=== PATIENT | female | born 1970 | race Caucasian/White ===

== ENCOUNTER → 2016-05-13 | Outpatient (CLI) | payer BC ==
[~2016-05-13] MED LIST: IBUP-1050 PO; OXYC-57 PO; PRENTAB26 PO
== END | disposition home or self-care (01) ==
LOC: C.PATHSPEC 17:39
PROVIDERS: ATTEND Obstetrics & Gynecology
DX: N84.1 Polyp of cervix uteri (principal)

== ENCOUNTER → 2016-07-07 | Outpatient (CLI) | payer BC ==
[~2016-07-07] MED LIST changes: +GADAVIST IV PRN
--- NOTE | 2016-07-07 14:29 | DIAGNOSTIC IMAGING REPORT ---
MRI OF THE BRAIN WITHOUT AND WITH IV CONTRAST CLINICAL HISTORY: HEADACHES mental status change COMPARISON STUDY: No previous studies for comparison. TECHNIQUE: Utilizing a 1.5 Faiza magnet and dedicated coil, multiplanar, multiecho imaging of the brain was performed pre and postcontrast administration. IV administration of 7.3 mL of Gadavist contrast was uneventful. FINDINGS: Diffusion-weighted images show no evidence for an acute ischemic insult. Signal characteristics of both cerebral hemispheres are unremarkable. Ventricular system is midline. Postcontrast images are negative for an enhancing lesion. Sella and parasellar region are unremarkable. Internal auditory canals are symmetric IMPRESSION: Normal study. Electronically signed by: Franky Fabian M.D. 07/07/2016 2:28 PM Dictated Date/Time: 07/07/2016 2:24 PM
== END | disposition home or self-care (01) ==
LOC: C.MRIBC 13:18
PROVIDERS: ATTEND Psychiatry & Neurology Neurology
DX: R51 Headache (principal)

== ENCOUNTER → 2016-07-13 | Outpatient (CLI) | payer BC ==
[~2016-07-13] MED LIST changes: -GADAVIST IV PRN
== END | disposition home or self-care (01) ==
LOC: C.PATHSPEC 07:49
PROVIDERS: ATTEND Obstetrics & Gynecology
DX: N64.52 Nipple discharge (principal)

== ENCOUNTER → 2016-07-29 | Outpatient (CLI) | payer BC ==
--- NOTE | 2016-07-29 13:33 | MAMMOGRAPHY REPORT ---
BILATERAL DIGITAL DIAGNOSTIC MAMMOGRAM TOMOSYNTHESIS WITH CAD AND TARGETED BILATERAL ULTRASOUND: 07/07 CLINICAL HISTORY: The patient reports a history of bilateral nipple discharge for years, which is ty pically only noticed upon expression and is milkybrownish. For the past 2 months the patient has n oticed spontaneous bright red right nipple discharge. She denies any palpable lumps but notes a foc al area of intermittent pain in the right upper inner quadrant. TECHNIQUE: Breast tomosynthesis in addition to standard 2D mammography was performed. Current study was also evaluated with a Computer Aided Detection (CAD) system. Bilateral CC and MLO 2-D and jerson synthesis images and spot magnification bilateral cc and ML views were obtained. COMPARISON: Comparison is made to exams dated: 12/14/2015 mammogram, 12/05/2013 mammogram, 12/08/2014 ma mmogram, 12/04/2012 mammogram, 11/30/2011 mammogram, and 10/11/2010 mammogram - [facility]ter. BREAST COMPOSITION: The tissue of both breasts is heterogeneously dense, which may obscure small ma sses. FINDINGS: Spot magnification views were performed of bilateral subareolar regions, which show no rincon spicious masses or calcifications. The remainder of both breasts demonstrate no suspicious masses, calcifications, or areas of architectural distortion. 2 adjacent partially circumscribed and partia lly obscured oval masses are seen within the left upper outer quadrant on the tomosynthesis images, for which ultrasound is recommended. Scattered bilateral benign-appearing calcifications are not si gnificantly changed. Targeted ultrasound was performed of the area of intermittent pain pointed out by the patient in the right upper inner quadrant. Sonographically normal tissue is seen in this region, without evidence of a mass or other suspicious sonographic abnormality. Targeted ultrasound was performed of bilate ral subareolar regions to evaluate for an intraductal mass. No clear intraductal mass or other etio logy for the nipple discharge is evident. Multiple small round/oval anechoic masses were noted in b ilateral subareolar and periareolar regions, some of which contain thin internal septations, which a re consistent with benign cysts and cyst clusters. Targeted ultrasound of the left upper outer quad rant in the region of the mammographic mass which shows 2 adjacent anechoic benign simple cysts in t he left breast at 1:00, 3-4 cm from the nipple, the largest measuring 1.3 cm, which correlate with t he mammographic masses. IMPRESSION: ACR BI-RADS CATEGORY 2: BENIGN, TARGETED ULTRASOUND ACR BI-RADS CATEGORY 2: BENIGN No intraductal mass or other etiology for bilateral nipple discharge evident. No mammographic evide nce of malignancy in either breast. Given the presence of new spontaneous bloody right nipple disch arge, recommend further evaluation with breast MRI and/or surgical consultation. The patient has been verbally notified of the results. Approximately 10% of breast cancers are not detected with mammography. A negative mammographic repor t should not delay biopsy if a clinically suggestive mass is present. Catalina Weinberg M.D. ah/:07/29/2016 11:55:26 Tso: Christopher HWANG(Gely)(M), [facility] letter sent: Normal 1/2 BI-RADS Code: ACR BI-RADS Category 2: Benign Ultrasound BI-RADS: ACR BI-RADS Category 2: Benign
== END | disposition home or self-care (01) ==
LOC: C.MAMM 09:55
PROVIDERS: ATTEND Obstetrics & Gynecology
DX: N64.52 Nipple discharge (principal)

== ENCOUNTER → 2016-08-19 | Outpatient (CLI) | payer BC ==
--- NOTE | 2016-08-22 15:16 | MAMMOGRAPHY REPORT ---
BREAST MRI OF BOTH BREASTS : 08/19/2016 CLINICAL HISTORY: Spontaneous bloody right nipple discharge, with no etiology identified on recent d iagnostic mammograms and ultrasound. COMPARISON: Comparison is made to exams dated: 07/29/2016 mammogram, 07/29/2016 ultrasound, 12/14/2015 mammogram, 12/08/2014 mammogram, and 12/12/2013 mammogram - [facility]. Technique: The patient was placed prone in a dedicated breast imaging coil. Precontrast axial T1-we ighted, axial T2-weighted fat saturation, and axial T1-weighted fat saturation images were obtained. After the administration of 7.5 mL of Gadavist IV contrast, sequential T1-weighted fat saturation images were obtained. Subtraction images were obtained of the dynamic contrast enhanced sequences, and 3-D reformations were performed. The App[employer] software was used for kinetic analysis. Findings: There is marked background parenchymal enhancement involving bilateral breasts, which significantly reduces the sensitivity of the exam. Within the limitations of the exam, there are no suspicious en hancing masses or areas of abnormal non-mass enhancement within either breast. There are multiple c ircumscribed T2 hyperintense nonenhancing masses seen scattered throughout both breasts, consistent with benign cysts. There is T1 hyperintense material within the ducts in bilateral subareolar regio ns, without corresponding abnormal enhancement; the material is consistent with proteinaceous debris and/or blood. There is no evidence of axillary adenopathy. The chest wall structures are negative. Visualized ex tramammary soft tissues are grossly unremarkable. IMPRESSION: ACR BI-RADS CATEGORY 2: BENIGN Marked background parenchymal enhancement which reduces the sensitivity of the exam. Within the frances itations of the exam, there is no MRI evidence of malignancy. No clear etiology for bloody right ni pple discharge evident. If the bloody nipple discharge persists, consider surgical consultation for further evaluation. Return to annual mammogram screening schedule is also recommended. Catalina Weinberg M.D. 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
== END | disposition home or self-care (01) ==
LOC: C.MRI 10:52
PROVIDERS: ATTEND Obstetrics & Gynecology
DX: R93.8 Abnormal findings on diagnostic imaging of other specified body structures (principal); N64.52 Nipple discharge

== ENCOUNTER → 2016-11-03 | Outpatient (CLI) | payer BC | END | disposition home or self-care (01) | LOC: C.PATHSPEC 17:54 | PROVIDERS: ATTEND Obstetrics & Gynecology | DX: N84.1 Polyp of cervix uteri (principal); N30.20 Other chronic cystitis without hematuria ==

== ENCOUNTER 2017-05-02 20:26 | Emergency (ER) | payer BC ==
[~2017-05-02] VITALS: Ht 157.5 cm; Wt 78.2 kg
[2017-05-02 20:29] VITALS: TEMP 36.7; Ht 157.5 cm; Wt 78.2 kg
[2017-05-02] MEDS ORDERED: KETOROLAC TROMETHAMINE 30 MG/ML VIAL IV STA (20:53)
[2017-05-02] MEDS ORDERED: FENTANYL CITRATE INJ 50 MCG/1 ML 2 ML VIAL IV STA (20:53)
[2017-05-02] MEDS ORDERED: SODIUM CHLORIDE 0.9% 1000ML 1,000 ML IV STA (20:53)
[2017-05-02] MEDS ORDERED: ONDANSETRON INJ 2 MG/ML 2 ML VIAL IV STA (20:53)
[2017-05-02 21:21] LABS: BASO % 0.4 %; BASO ABS # 0.03 K/uL (0-0.2); COMPLETE YES; EOS % 2.8 %; HEMATOCRIT 39.9 % (37-47); IG% 0.1 %; LYMPH % 32.7 %; LYMPH ABS # 2.59 K/uL (1.2-3.4); MEAN CELL VOLUME 88.3 fL (80-100); MEAN CORPUSCULAR HEMOGLOBIN 30.5 pg (25-34); MEAN CORPUSCULAR HGB CONC 34.6 g/dl (32-36); MEAN PLATELET VOLUME 10.5 fL (7.4-10.4); MONO % 13.6 %; NEUT % 50.4 %; PLATELET COUNT 248 K/uL (130-400); RED BLOOD COUNT 4.52 M/uL (4.2-5.4); WHITE BLOOD COUNT 7.92 K/uL (4.8-10.8)
[2017-05-02 21:35] LABS: URINE APPEARANCE CLEAR (CLEAR); URINE BILIRUBIN NEG (NEG); URINE COLOR YELLOW; URINE NITRITE NEG (NEG); URINE PH 6.5 (4.5-7.5); URINE SPECIFIC GRAVITY 1.008 (1.000-1.030); UROBILINOGEN NEG (NEG)
[2017-05-02 21:39] LABS: MANUAL MICROSCOPIC REQUIRED? YES; REVIEW REQ? NO
[2017-05-02 21:49] LABS: URINE BACTERIA 1+ (NEG); URINE RBC 0-4 /hpf (0-4); ZZUR CULT IF INDIC CLEAN CATCH YES
--- NOTE | 2017-05-02 21:49 | DIAGNOSTIC IMAGING REPORT ---
CT OF THE ABDOMEN AND PELVIS WITHOUT CONTRAST, STONE PROTOCOL CLINICAL HISTORY: Flank pain. COMPARISON STUDY: None. TECHNIQUE: Helical axial images of the abdomen and pelvis were obtained without IV or oral contrast according to renal stone protocol. A dose lowering technique was utilized adhering to the principles of ALARA. FINDINGS: No renal, ureteral or bladder calculi are present. There is no hydronephrosis or hydroureter. A subcentimeter hypodense right hepatic lobe lesion likely reflects a cyst. Evaluation of the abdomen and pelvis is suboptimal on this unenhanced examination. The spleen, adrenal glands and pancreas are unremarkable. There is no biliary or pancreatic ductal dilatation. There is no evidence for a bowel obstruction. The appendix is not visualized. There is no lymphadenopathy. No ascites is present. Pelvic calcifications reflect phleboliths. IMPRESSION: 1. No urinary calculi or hydronephrosis. 2. No acute process within the abdomen or pelvis on unenhanced exam. Electronically signed by: Carlitos Ashton M.D. 05/02/2017 9:47 PM Dictated Date/Time: 05/02/2017 9:40 PM
[2017-05-02] MEDS ORDERED: VERA180C3 PO (21:56)
[2017-05-02] MEDS ORDERED: RIZA10TA18 PO (21:56)
--- NOTE | 2017-05-02 21:58 | EMERGENCY ROOM VISIT NOTE ---
History Report prepared by Mee: Lance Gaytan Under the Supervision of: Dr. Dexter Cameron D.O. First contact with patient: 20:32 Chief Complaint: KIDNEY STONE Stated Complaint: KIDNEY STONE History of Present Illness The patient is a 46 year old female who presents to the Emergency Room with complaints of worsening, intermittent, cramping to her right lower back beginning two days ago. The patient states she went to a medical center today and had a urine analysis that showed blood. She reports she has a history of a kidney stone, and her symptoms are very similar. The patient notes movement helps with alleviate her symptoms. She states her last normal menstrual period was three weeks ago. The patient denies any other complaint. Source of History: patient Onset: two days ago Position: back (right, lower) Quality: cramping Timing: intermittent, worsening Modifying Factors (Relieving): movement Note: The patient denies other symptoms. Review of Systems See HPI for pertinent positives & negatives. A total of 10 systems reviewed and were otherwise negative. Past Medical & Surgical Medical Problems: (1) Kidney stone Family History Patient reports no known family medical history. Social History Smoking Status: Never Smoker Marital Status: Housing Status: lives with significant other Occupation Status: employed Current/Historical Medications Scheduled Rizatriptan Benzoate (Maxalt), 10 MG PO UD Verapamil Hcl (Verapamil Hcl Sr), 180 MG PO DAILY Allergies Coded Allergies: Cefdinir (Verified Allergy, Intermediate, Nausea, 05/02/17) Sodium Benzoate (Verified Allergy, Intermediate, Nausea, 05/02/17) Sulfa Drugs (Verified Allergy, Unknown, REDNESS,SWELLING,ITCHY, 06/12/09) Physical Exam Vital Signs Date Time Temp Pulse Resp B/P (MAP) Pulse Ox O2 Delivery O2 Flow Rate FiO2 05/02/17 22:11 70 18 142/93 99 Room Air 05/02/17 20:29 36.7 72 18 171/93 100 Room Air Physical Exam CONSTITUTIONAL/VITAL SIGNS: Reviewed / noted above. GENERAL: Non-toxic in appearance. INTEGUMENTARY: Warm, dry, and [place]. HEAD: Normocephalic. EYES: without scleral icterus or trauma. ENT/OROPHARYNX: clear and moist. LYMPHADENOPATHY/NECK: Is supple without lymphadenopathy or meningismus. RESPIRATORY: Lungs clear and equal. CARDIOVASCULAR: Regular rate and rhythm. GI/ABDOMEN: Soft and nontender. No organomegaly or pulsatile mass. No rebound or guarding. Normal bowel sounds. EXTREMITIES: Warm and well perfused. BACK: No CVA tenderness. NEUROLOGICAL: Intact without focal deficits. PSYCHIATRIC: normal affect. MUSCULOSKELETAL: Normally developed with good muscle tone. Medical Decision & Procedures ER Provider Diagnostic Interpretation: Radiology results as stated below per my review and radiologist interpretation: CT OF THE ABDOMEN AND PELVIS WITHOUT CONTRAST, STONE PROTOCOL CLINICAL HISTORY: Flank pain. COMPARISON STUDY: None. TECHNIQUE: Helical axial images of the abdomen and pelvis were obtained without IV or oral contrast according to renal stone protocol. A dose lowering technique was utilized adhering to the principles of ALARA. FINDINGS: No renal, ureteral or bladder calculi are present. There is no hydronephrosis or hydroureter. A subcentimeter hypodense right hepatic lobe lesion likely reflects a cyst. Evaluation of the abdomen and pelvis is suboptimal on this unenhanced examination. The spleen, adrenal glands and pancreas are unremarkable. There is no biliary or pancreatic ductal dilatation. There is no evidence for a bowel obstruction. The appendix is not visualized. There is no lymphadenopathy. No ascites is present. Pelvic calcifications reflect phleboliths. IMPRESSION: 1. No urinary calculi or hydronephrosis. 2. No acute process within the abdomen or pelvis on unenhanced exam. Electronically signed by: Carlitos Ashton M.D. 05/02/2017 9:47 PM Dictated Date/Time: 05/02/2017 9:40 PM Laboratory Results 05/02/17 21:00 Red Blood Count 4.52, Mean Corpuscular Volume 88.3, Mean Corpuscular Hemoglobin 30.5, Mean Corpuscular Hemoglobin Concent 34.6, Mean Platelet Volume 10.5, Neutrophils (%) (Auto) 50.4, Lymphocytes (%) (Auto) 32.7, Monocytes (%) (Auto) 13.6, Eosinophils (%) (Auto) 2.8, Basophils (%) (Auto) 0.4, Neutrophils # (Auto ) 3.99, Lymphocytes # (Auto) 2.59, Monocytes # (Auto) 1.08, Eosinophils # (Auto ) 0.22, Basophils # (Auto) 0.03 05/02/17 21:00 Test 05/02/17 21:00 White Blood Count 7.92 K/uL (4.8-10.8) Red Blood Count 4.52 M/uL (4.2-5.4) Hemoglobin 13.8 g/dL (12.0-16.0) Hematocrit 39.9 % (37-47) Mean Corpuscular Volume 88.3 fL (80-100) Mean Corpuscular Hemoglobin 30.5 pg (25-34) Mean Corpuscular Hemoglobin Concent 34.6 g/dl (32-36) Platelet Count 248 K/uL (130-400) Mean Platelet Volume 10.5 fL (7.4-10.4) Neutrophils (%) (Auto) 50.4 % Lymphocytes (%) (Auto) 32.7 % Monocytes (%) (Auto) 13.6 % Eosinophils (%) (Auto) 2.8 % Basophils (%) (Auto) 0.4 % Neutrophils # (Auto) 3.99 K/uL (1.4-6.5) Lymphocytes # (Auto) 2.59 K/uL (1.2-3.4) Monocytes # (Auto) 1.08 K/uL (0.11-0.59) Eosinophils # (Auto) 0.22 K/uL (0-0.5) Basophils # (Auto) 0.03 K/uL (0-0.2) RDW Standard Deviation 41.6 fL (36.4-46.3) RDW Coefficient of Variation 13.0 % (11.5-14.5) Immature Granulocyte % (Auto) 0.1 % Immature Granulocyte # (Auto) 0.01 K/uL (0.00-0.02) Urine Color YELLOW Urine Appearance CLEAR (CLEAR) Urine pH 6.5 (4.5-7.5) Urine Specific [place] 1.008 (1.000-1.030) Urine Protein NEG (NEG) Urine Glucose (UA) NEG (NEG) Urine Ketones NEG (NEG) Urine Occult Blood NEG (NEG) Urine Nitrite NEG (NEG) Urine Bilirubin NEG (NEG) Urine Urobilinogen NEG (NEG) Urine Leukocyte Esterase NEG (NEG) Urine WBC (Auto) /hpf (0-5) Urine RBC (Auto) /hpf (0-4) Urine Hyaline Casts (Auto) /lpf (0-5) Urine Epithelial Cells (Auto) /lpf (0-5) Urine Bacteria (Auto) (NEG) Urine RBC 0-4 /hpf (0-4) Urine WBC 1-5 /hpf (0-5) Urine Epithelial Cells 10-20 /lpf (0-5) Urine Bacteria 1+ (NEG) Urine Test NEG (NEG) Anion Gap 6.0 mmol/L (3-11) Est Creatinine Clear Calc Drug Dose 89.6 ml/min Estimated GFR () 109.0 Estimated GFR (Non- 94.1 BUN/Creatinine Ratio 13.2 (10-20) Calcium Level 8.7 mg/dl (8.5-10.1) Total Bilirubin 0.3 mg/dl (0.2-1) Direct Bilirubin < 0.1 mg/dl (0-0.2) Aspartate Amino Transf (AST/SGOT) 33 U/L (15-37) Alanine Aminotransferase (ALT/SGPT) 23 U/L (12-78) Alkaline Phosphatase 59 U/L (45-117) Total Protein 7.9 gm/dl (6.4-8.2) Albumin 4.2 gm/dl (3.4-5.0) Lipase 371 U/L (73-393) Laboratory results as stated above per my review. Medications Administered Medications (Trade) Dose Ordered Sig/Molly Route Start Time Stop Time Status Last Admin Dose Admin Sodium Chloride 1,000 ml @ 999 mls/hr Q1H1M STAT IV 05/02/17 20:53 05/02/17 21:53 DC 05/02/17 21:07 999 MLS/HR Fentanyl Citrate (Fentanyl Inj) 100 mcg NOW STAT IV 05/02/17 20:53 05/02/17 20:54 DC 05/02/17 21:07 100 MCG Ondansetron HCl (Zofran Inj) 4 mg NOW STAT IV 05/02/17 20:53 05/02/17 20:54 DC 05/02/17 21:06 4 MG Ketorolac Tromethamine (Toradol Inj) 30 mg NOW STAT IV 05/02/17 20:53 05/02/17 20:54 DC 05/02/17 21:07 30 MG ED Course 2049: Previous medical records were reviewed. The patient was evaluated in room B12A. A complete history and physical examination was performed. 2052: Ordered Toradol Inj 30mg IV, Zofran Inj 4mg IV, Fentanyl Inj 100mcg IV, Sodium Chloride 1000 ml @ 999 mls/hr IV 2216: On reevaluation, the patient is resting comfortably. I discussed the results and findings with the patient. She verbalized agreement of the treatment plan. The patient was discharged home. Medical Decision Differential considered: pancreatitis, hepatitis, or acute cholecystitis, AAA, UTI, pyelonephritis, kidney stones, appendicitis, diverticulitis, shingles, bowel obstruction mesenteric ischemia, intussusception, hernia, ovarian torsion , ruptured ovarian cyst, ectopic , . This is a 46-year-old female who presents to the ED with a chief complaint of a kidney stone. The patient states that she has had some right-sided flank pain for the past couple of days. It was initially intermittent in nature and then became more continuous. She reports that she was seen at [facility] and found to have blood in the urine. She was given medication which hasn't helped. The patient has initial hypertension on exam. There is no abdominal tenderness or CVA tenderness on exam. Her CBC is normal, urine did not show infection or blood. test was negative. CT scan of the abdomen and pelvis did not show acute process. PRP was unremarkable. The patient was told results. She was treated with IV Toradol and IV fentanyl as well as IV Zofran and fluids. She is felt to be stable for discharge and outpatient follow-up. Medication Reconcilliation Current Medication List: was personally reviewed by me Blood Pressure Screening Patient's blood pressure: Elevated blood pressure Blood pressure disposition: Elevated BP felt to be situational Impression Primary Impression: Right flank pain Scribe Attestation The scribe's documentation has been prepared under my direction and personally reviewed by me in its entirety. I confirm that the note above accurately reflects all work, treatment, procedures, and medical decision making performed by me. Departure Information Dispostion Home / Self-Care Referrals Keven Aguila M.D. (PCP) Forms HOME CARE DOCUMENTATION FORM, IMPORTANT VISIT INFORMATION Patient Instructions My [facility] Additional Instructions Follow-up with your doctor for further care and evaluation in 3-6 days if symptoms persist. Return to the emergency department for worsening or new symptoms or any concerns. You have been examined and treated today on an emergency basis only. This is not a substitute for, or an effort to provide, complete comprehensive medical care. It is impossible to recognize and treat all injuries or illnesses in a single emergency department visit. It is therefore important that you follow up closely with your doctor. Call as soon as possible for an appointment.
[2017-05-02 22:11] VITALS: BP 142/93; PULSE 70; O2SAT 99
[2017-05-02 22:12] LABS: ALKALINE PHOSPHATASE 59 U/L (45-117); ALT/SGPT 23 U/L (12-78); AST/SGOT 33 U/L (15-37); BLOOD UREA NITROGEN 10 mg/dl (7-18); BUN/CREATININE RATIO 13.2 (10-20); CALCIUM 8.7 mg/dl (8.5-10.1); CARBON DIOXIDE 25 mmol/L (21-32); CHLORIDE 107 mmol/L (98-107); CREATININE 0.76 mg/dl (0.60-1.20); GLUCOSE 88 mg/dl (70-99); POTASSIUM 4.4 mmol/L (3.5-5.1); SODIUM 138 mmol/L (136-145)
[2017-05-02] MEDS ORDERED: MoRPHine SULFATE 4 MG/ML 1 ML CARP\\VIAL IV STA (22:18)
[2017-05-03] MEDS ORDERED: KETO10TA PO (18:13)
[2017-05-03] MEDS ORDERED: HYDR-5688 PO (18:13)
[2017-05-03] MEDS ORDERED: PRED10TA PO (23:03)
== END 2017-05-02 22:26 | disposition home or self-care (01) ==
LOC: C.EDB 20:26
DX: R10.9 Unspecified abdominal pain (principal); Z87.442 Personal history of urinary calculi; Z79.899 Other long term (current) drug therapy

== ENCOUNTER 2017-05-03 17:43 | Emergency (ER) | payer BC ==
[~2017-05-03] VITALS: Ht 157.5 cm; Wt 77.3 kg
[~2017-05-03 17:43] MED LIST changes: -IBUP-1050 PO; -OXYC-57 PO; -PRENTAB26 PO; +RIZA10TA18 PO; +VERA180C3 PO
[2017-05-03 17:46] VITALS: TEMP 36.8; Ht 157.5 cm; Wt 77.3 kg
--- NOTE | 2017-05-03 17:59 | EMERGENCY ROOM VISIT NOTE ---
History Report prepared by Mee: Suzanne Wagner Under the Supervision of: Dr. Sandi Vásquez M.D. First contact with patient: 17:56 Chief Complaint: KIDNEY STONE Stated Complaint: KIDNEY STONE History of Present Illness The patient is a 46 year old female who presents to the Emergency Room with complaints of worsening flank pain occurring today. She states that she went to [facility] yesterday morning and her urine had blood in it, and was told she probably had a kidney stone. The patient states that she came to the ED last night because the pain was severe, so she had a work up done, which showed normal results. She states that when she got home her pain worsened , and she called her doctor and was prescribed hydrocodone. She states that the hydrocodone did not help her pain. She reports a history of an appendectomy but denies a history of a cholecystectomy. The patient states that she had the chills today, but denies shortness of breath. She denies being on control medications. She also denies a family history of blood clots. Her also states that the patient has chronic migraines. Source of History: patient Onset: today Position: other (flank) Timing: worsening Associated Symptoms: + chills, No SOB Review of Systems See HPI for pertinent positives & negatives. A total of 10 systems reviewed and were otherwise negative. Past Medical & Surgical Medical Problems: (1) Kidney stone Surgical Problems: (1) History of appendectomy Family History Patient reports no known family medical history. Social History Smoking Status: Never Smoker Marital Status: Housing Status: lives with significant other Occupation Status: employed Current/Historical Medications Scheduled Prednisone (Prednisone), 10 MG PO DIRECTED Rizatriptan Benzoate (Maxalt), 10 MG PO UD Verapamil Hcl (Verapamil Hcl Sr), 180 MG PO DAILY Scheduled PRN Hydrocodone/Acetaminophen 5MG/325MG (Mohawk 5MG/325MG), 1 TAB PO TID PRN for Pain Ketorolac (Toradol), 10 MG PO for Pain Allergies Coded Allergies: Cefdinir (Verified Allergy, Intermediate, Nausea, 05/03/17) Sodium Benzoate (Verified Allergy, Intermediate, Nausea, 05/03/17) Sulfa Drugs (Verified Allergy, Unknown, REDNESS,SWELLING,ITCHY, 05/03/17) Physical Exam Vital Signs Date Time Temp Pulse Resp B/P (MAP) Pulse Ox O2 Delivery O2 Flow Rate FiO2 05/03/17 23:05 78 20 133/86 98 05/03/17 21:28 83 20 132/87 97 Room Air 05/03/17 20:46 71 05/03/17 19:52 69 20 125/58 96 Room Air 05/03/17 17:46 36.8 86 18 151/100 100 Room Air Physical Exam Vital signs reviewed. General: Well-appearing female, in no significant distress. HEENT: No scleral icterus, PERRLA, neck supple. Atraumatic. Cardiovascular: Regular rate and rhythm, no extra sounds. Pulmonary: Clear to auscultation bilaterally, normal work of breathing. Abdomen: Soft, nontender, obese, no significant right upper quadrant tenderness , nondistended, positive bowel sounds. Musculoskeletal: Atraumatic, no peripheral edema. No CVA tenderness. Neurologic: Patient awake alert and oriented x 3. Skin: Warm, dry, no rash Medical Decision & Procedures ER Provider Diagnostic Interpretation: Radiology results as stated below per my review and radiologist interpretation: SINGLE VIEW CHEST CLINICAL HISTORY: Cough. Right flank pain. FINDINGS: An AP, portable, upright chest radiograph is obtained. No prior studies are available for comparison at the time of dictation. The examination is degraded by portable technique and patient rotation. The cardiomediastinal silhouette is unremarkable. The lungs and pleural spaces are clear. No pneumothorax is seen. The bony thorax is grossly intact. IMPRESSION: No active disease in the chest. Electronically signed by: Napoleon Turner M.D. 05/03/2017 7:00 PM Dictated Date/Time: 05/03/2017 6:59 PM ULTRASOUND RIGHT UPPER QUADRANT ABDOMEN CLINICAL HISTORY: Right flank pain. COMPARISON STUDY: Abdominal CT dated 05/02/2017. TECHNIQUE: Real-time, grayscale, and color flow sonography of the right upper quadrant of the abdomen was performed. Images are reviewed in the transverse and longitudinal planes. FINDINGS: Liver: The liver is normal in size and echotexture. There is no intrahepatic biliary ductal dilatation. The main portal vein is patent. Gallbladder: The gallbladder is normal in appearance. No gallstones are identified. There is no gallbladder wall thickening or pericholecystic fluid. A sonographic Atkinson's sign is reportedly absent. The common bile duct measures up to 0.4 cm in diameter. Pancreas: Visualized portions of the pancreatic head and body are normal in appearance. Right kidney: Survey images of the right kidney demonstrate normal size and echotexture. There is no hydronephrosis. Ascites: None. IMPRESSION: Unremarkable sonographic assessment of the right upper quadrant. No gallstones are identified. Electronically signed by: Napoleon Turner M.D. 05/03/2017 7:45 PM Dictated Date/Time: 05/03/2017 7:[address] ANGIOGRAM OF THE CHEST CLINICAL HISTORY: Atypical chest pain. COMPARISON STUDY: Chest x-ray dated 05/03/2017. TECHNIQUE: Following the IV administration of 70 cc of Optiray 320, CT angiogram of the chest was performed from the upper abdomen to the thoracic inlet utilizing the pulmonary embolus protocol. Images are reviewed in the axial, sagittal, and coronal planes. 3-D MIPS images are created and assessed. IV contrast was administered without complication. A dose lowering technique was utilized adhering to the principles of ALARA. CT DOSE: 304.62 mGy.cm FINDINGS: Thyroid: Imaged portions of the thyroid gland are normal in size and attenuation. A 1.2 cm low-attenuation nodule is seen in the left lobe. Thoracic aorta: The thoracic aorta is normal in caliber and demonstrates standard 3-vessel arch anatomy. No dissection is seen. Pulmonary vasculature: The pulmonary trunk is normal in caliber. There are no filling defects identified in main, lobar, or segmental pulmonary branches to suggest pulmonary embolus. Heart: The heart is normal in size and configuration, and without pericardial effusion. There is age advanced atherosclerotic calcification of the left coronary artery. Lungs and pleural spaces: The lungs and pleural spaces are clear noting dependent atelectasis. The trachea and central airways are patent. Mediastinum: There is no mediastinal lymphadenopathy. Lucia: Clear. Axillae: There is no axillary lymphadenopathy. Upper abdomen: There is a small hiatal hernia. Partially visualized upper abdominal viscera is otherwise within normal limits. Skeletal structures: No lytic or blastic bony lesions are seen. IMPRESSION: 1. There is no evidence of pulmonary embolus in the main, lobar, or segmental pulmonary arteries. 2. The lungs are clear. 3. There is a 1.2 cm low-attenuation nodule in the left thyroid lobe. Follow-up with a nonemergent thyroid ultrasound is recommended for further assessment. 4. There is mild but age advanced atherosclerotic calcification of the left coronary artery. Electronically signed by: Napoleon Turner M.D. 05/03/2017 9:43 PM Dictated Date/Time: 05/03/2017 9:39 PM Laboratory Results 05/03/17 18:30 Red Blood Count 4.49, Mean Corpuscular Volume 86.9, Mean Corpuscular Hemoglobin 30.1, Mean Corpuscular Hemoglobin Concent 34.6, Mean Platelet Volume 10.5, Neutrophils (%) (Auto) 75.8, Lymphocytes (%) (Auto) 14.9, Monocytes (%) (Auto) 7.8, Eosinophils (%) (Auto) 1.0, Basophils (%) (Auto) 0.2, Neutrophils # (Auto) 7.31, Lymphocytes # (Auto) 1.44, Monocytes # (Auto) 0.75, Eosinophils # (Auto) 0.10, Basophils # (Auto) 0.02 05/03/17 18:30 Test 05/03/17 18:17 05/03/17 18:30 05/03/17 18:40 Urine Color YELLOW Urine Appearance CLEAR (CLEAR) Urine pH 5.0 (4.5-7.5) Urine Specific [place] 1.012 (1.000-1.030) Urine Protein NEG (NEG) Urine Glucose (UA) NEG (NEG) Urine Ketones NEG (NEG) Urine Occult Blood TRACE (NEG) Urine Nitrite NEG (NEG) Urine Bilirubin NEG (NEG) Urine Urobilinogen NEG (NEG) Urine Leukocyte Esterase NEG (NEG) Urine WBC (Auto) 0 /hpf (0-5) Urine RBC (Auto) 0-4 /hpf (0-4) Urine Hyaline Casts (Auto) 0 /lpf (0-5) Urine Epithelial Cells (Auto) 5-10 /lpf (0-5) Urine Bacteria (Auto) NEG (NEG) White Blood Count 9.65 K/uL (4.8-10.8) Red Blood Count 4.49 M/uL (4.2-5.4) Hemoglobin 13.5 g/dL (12.0-16.0) Hematocrit 39.0 % (37-47) Mean Corpuscular Volume 86.9 fL (80-100) Mean Corpuscular Hemoglobin 30.1 pg (25-34) Mean Corpuscular Hemoglobin Concent 34.6 g/dl (32-36) Platelet Count 239 K/uL (130-400) Mean Platelet Volume 10.5 fL (7.4-10.4) Neutrophils (%) (Auto) 75.8 % Lymphocytes (%) (Auto) 14.9 % Monocytes (%) (Auto) 7.8 % Eosinophils (%) (Auto) 1.0 % Basophils (%) (Auto) 0.2 % Neutrophils # (Auto) 7.31 K/uL (1.4-6.5) Lymphocytes # (Auto) 1.44 K/uL (1.2-3.4) Monocytes # (Auto) 0.75 K/uL (0.11-0.59) Eosinophils # (Auto) 0.10 K/uL (0-0.5) Basophils # (Auto) 0.02 K/uL (0-0.2) RDW Standard Deviation 41.1 fL (36.4-46.3) RDW Coefficient of Variation 12.7 % (11.5-14.5) Immature Granulocyte % (Auto) 0.3 % Immature Granulocyte # (Auto) 0.03 K/uL (0.00-0.02) D-Dimer 520 ug/L FEU (0-500) Anion Gap 6.0 mmol/L (3-11) Est Creatinine Clear Calc Drug Dose 94.0 ml/min Estimated GFR () 116.4 Estimated GFR (Non- 100.4 BUN/Creatinine Ratio 8.4 (10-20) Calcium Level 9.2 mg/dl (8.5-10.1) Total Bilirubin 0.5 mg/dl (0.2-1) Direct Bilirubin 0.1 mg/dl (0-0.2) Aspartate Amino Transf (AST/SGOT) 14 U/L (15-37) Alanine Aminotransferase (ALT/SGPT) 22 U/L (12-78) Alkaline Phosphatase 46 U/L (45-117) Total Protein 7.0 gm/dl (6.4-8.2) Albumin 4.1 gm/dl (3.4-5.0) Bedside Troponin I < 0.030 ng/ml (0-0.045) Laboratory results per my review. Medications Administered Medications (Trade) Dose Ordered Sig/Molly Route Start Time Stop Time Status Last Admin Dose Admin Sodium Chloride 500 ml @ 999 mls/hr Q31M STAT IV 05/03/17 18:03 05/03/17 18:33 DC 05/03/17 18:35 999 MLS/HR Ketorolac Tromethamine (Toradol Inj) 30 mg NOW STAT IV 05/03/17 18:03 05/03/17 18:09 DC 05/03/17 18:36 30 MG Hydromorphone HCl (Dilaudid Inj) 1 mg NOW STAT IV 05/03/17 18:03 05/03/17 18:09 DC 05/03/17 18:37 1 MG Prochlorperazine Edisylate (Compazine Inj) 10 mg NOW STAT IV 05/03/17 18:03 05/03/17 18:10 DC 05/03/17 18:36 10 MG Diphenhydramine HCl (Benadryl Inj) 25 mg NOW STAT IV 05/03/17 18:03 05/03/17 18:10 DC 05/03/17 18:36 25 MG Methylprednisolone Sodium Succinate (Solu-Medrol IV) 125 mg NOW STAT IV 05/03/17 22:27 05/03/17 22:28 DC 05/03/17 22:42 125 MG Hydromorphone HCl (Dilaudid Inj) 0.5 mg NOW STAT IV 05/03/17 22:27 05/03/17 22:28 DC 05/03/17 22:43 0.5 MG Acetaminophen/ Hydrocodone Bitart (Mohawk 5/325mg Home Pack) 1 homepack UD ONCE PO 05/03/17 22:30 05/03/17 22:31 DC 05/03/17 22:43 1 HOMEPACK ECG Indication: other (flank pain) Rate (beats per minute): 74 Rhythm: normal sinus Findings: no acute ischemic change, no ectopy ED Course 1800: Past medical records reviewed. The patient was evaluated in room C5. A complete history and physical examination was performed. 1802: Ordered Benadryl Inj 25 mg IV, Compazine Inj 10 mg IV, Dilaudid Inj 1 mg IV, Toradol Inj 30 mg IV, Sodium Chloride 500 ml @ 999 mls/hr IV. 2114: I checked on the patient and updated her on her results. 2226: Ordered Dilaudid Inj 0.5 mg IV, Methylprednisolone Sodium Succinate 125 mg IV. 2229: Ordered Hydrocodone Bitart/Acetaminophen 1 homepack PO. 3: Upon reevaluation, the patient appeared to have improvement of her symptoms. I discussed findings with her. She verbalized agreement of the treatment plan. She was discharged home. Medical Decision Differential diagnosis: Etiologies such as renal colic, appendicitis, diverticulitis, mesenteric ischemia, aortic pathology, infections, inflammatory bowel disease, PUD, biliary pathology, UTI, cholecystitis, as well as others were entertained. This patient was evaluated and appeared to be in no significant distress. IV access was obtained and laboratory work was drawn. Patient was hydrated with normal saline solution IV Toradol, IV Dilaudid and IV Compazine. CT scan of the abdomen and pelvis was performed and reveals no evidence of renal calculus. Urinalysis is contaminated but largely negative for infection. This will be sent for culture. Patient is also found have a thyroid nodule on CT which was discussed with her. I suspect the patient is suffering a musculoskeletal pain, could be a radiculopathy. She was advised to follow-up with her physician for reevaluation. She was given Flexeril earlier in the day. The patient requested additional pain medicine she was given IV Dilaudid 0.5 mg. Patient was given conservative instructions regarding her back discomfort. She will follow-up with her primary care physician this week for reevaluation and return to the ER for worsening of symptoms or any medical concerns. [place] Drug Monitoring Program Search Results: patient reviewed within database, no issues identified Medication Reconcilliation Current Medication List: was personally reviewed by me Blood Pressure Screening Patient's blood pressure: Elevated blood pressure Blood pressure disposition: Elevated BP felt to be situational Impression Primary Impression: Right flank pain Additional Impressions: Radiculopathy Thyroid nodule Scribe Attestation The scribe's documentation has been prepared under my direction and personally reviewed by me in its entirety. I confirm that the note above accurately reflects all work, treatment, procedures, and medical decision making performed by me. Departure Information Dispostion Home / Self-Care Prescriptions Prednisone (Prednisone) 10 Mg Tab 10 MG PO DIRECTED, #31 TAB 40 mg daily for 4 days, 30 mg for 3 days, 20 mg for 2 days, 10 mg for 2 days. Prov: Sandi Vásquez M.D. 05/03/17 Referrals Suzy Grady M.D. (PCP) Forms HOME CARE DOCUMENTATION FORM, IMPORTANT VISIT INFORMATION Patient Instructions My [facility] Additional Instructions Diagnosis: Right thyroid nodule, right flank pain, radiculopathy Prednisone 40 mg daily for 4 more days, 30 mg daily for 3 days, 20 mg daily for 2 days, 10 mg daily for 2 days. Hydrocodone/APAP 5 mg tablet, one to 2 tabs every 6 hours as needed for significant pain. Do not take Tylenol with this medication. Avoid Aleve, ibuprofen and aspirin while taking the prednisone. Follow-up with your physician on Monday as scheduled. Return to the emergency department for worsening of symptoms or any medical concerns. Problem Qualifiers
[2017-05-03] MEDS ORDERED: PROCHLORPERAZINE 5 MG/ML 2 ML VIAL IV STA (18:03)
[2017-05-03] MEDS ORDERED: KETOROLAC TROMETHAMINE 30 MG/ML VIAL IV STA (18:03)
[2017-05-03] MEDS ORDERED: DiphenhydrAMINE HCL 50 MG/ML VIAL IV STA (18:03)
[2017-05-03] MEDS ORDERED: SODIUM CHLORIDE 0.9% 500ML 500 ML IV STA (18:03)
[2017-05-03] MEDS ORDERED: HYDROmorphone INJ 1 MG/ML SYR IV STA (18:03)
[2017-05-03] MEDS ORDERED: KETO10TA PO (18:13)
[2017-05-03] MEDS ORDERED: HYDR-5688 PO (18:13)
[2017-05-03 18:55] LABS: BASO % 0.2 %; BASO ABS # 0.02 K/uL (0-0.2); COMPLETE YES; IG% 0.3 %; LYMPH % 14.9 %; LYMPH ABS # 1.44 K/uL (1.2-3.4); MEAN CELL VOLUME 86.9 fL (80-100); MEAN CORPUSCULAR HEMOGLOBIN 30.1 pg (25-34); MEAN CORPUSCULAR HGB CONC 34.6 g/dl (32-36); MEAN PLATELET VOLUME 10.5 fL (7.4-10.4); MONO % 7.8 %; NEUT % 75.8 %; PLATELET COUNT 239 K/uL (130-400); RED BLOOD COUNT 4.49 M/uL (4.2-5.4); WHITE BLOOD COUNT 9.65 K/uL (4.8-10.8)
--- NOTE | 2017-05-03 19:01 | DIAGNOSTIC IMAGING REPORT ---
SINGLE VIEW CHEST CLINICAL HISTORY: Cough. Right flank pain. FINDINGS: An AP, portable, upright chest radiograph is obtained. No prior studies are available for comparison at the time of dictation. The examination is degraded by portable technique and patient rotation. The cardiomediastinal silhouette is unremarkable. The lungs and pleural spaces are clear. No pneumothorax is seen. The bony thorax is grossly intact. IMPRESSION: No active disease in the chest. Electronically signed by: Napoleon Turner M.D. 05/03/2017 7:00 PM Dictated Date/Time: 05/03/2017 6:59 PM
[2017-05-03 19:09] LABS: URINE APPEARANCE CLEAR (CLEAR); URINE BILIRUBIN NEG (NEG); URINE COLOR YELLOW; URINE NITRITE NEG (NEG); URINE SPECIFIC GRAVITY 1.012 (1.000-1.030); UROBILINOGEN NEG (NEG); ZZUR CULT IF INDIC CLEAN CATCH NO
[2017-05-03 19:19] LABS: MANUAL MICROSCOPIC REQUIRED? NO; REVIEW REQ? NO
[2017-05-03 19:38] LABS: BUN/CREATININE RATIO 8.4 (10-20); CALCIUM 9.2 mg/dl (8.5-10.1); CREATININE 0.72 mg/dl (0.60-1.20); POTASSIUM 3.5 mmol/L (3.5-5.1)
--- NOTE | 2017-05-03 19:46 | DIAGNOSTIC IMAGING REPORT ---
ULTRASOUND RIGHT UPPER QUADRANT ABDOMEN CLINICAL HISTORY: Right flank pain. COMPARISON STUDY: Abdominal CT dated 05/02/2017. TECHNIQUE: Real-time, grayscale, and color flow sonography of the right upper quadrant of the abdomen was performed. Images are reviewed in the transverse and longitudinal planes. FINDINGS: Liver: The liver is normal in size and echotexture. There is no intrahepatic biliary ductal dilatation. The main portal vein is patent. Gallbladder: The gallbladder is normal in appearance. No gallstones are identified. There is no gallbladder wall thickening or pericholecystic fluid. A sonographic Atkinson's sign is reportedly absent. The common bile duct measures up to 0.4 cm in diameter. Pancreas: Visualized portions of the pancreatic head and body are normal in appearance. Right kidney: Survey images of the right kidney demonstrate normal size and echotexture. There is no hydronephrosis. Ascites: None. IMPRESSION: Unremarkable sonographic assessment of the right upper quadrant. No gallstones are identified. Electronically signed by: Napoleon Turner M.D. 05/03/2017 7:45 PM Dictated Date/Time: 05/03/2017 7:44 PM
[2017-05-03] MEDS ORDERED: OPTIRAY 320 IV PRN (21:30)
--- NOTE | 2017-05-03 21:44 | DIAGNOSTIC IMAGING REPORT ---
CT ANGIOGRAM OF THE CHEST CLINICAL HISTORY: Atypical chest pain. COMPARISON STUDY: Chest x-ray dated 05/03/2017. TECHNIQUE: Following the IV administration of 70 cc of Optiray 320, CT angiogram of the chest was performed from the upper abdomen to the thoracic inlet utilizing the pulmonary embolus protocol. Images are reviewed in the axial, sagittal, and coronal planes. 3-D MIPS images are created and assessed. IV contrast was administered without complication. A dose lowering technique was utilized adhering to the principles of ALARA. CT DOSE: 304.62 mGy.cm FINDINGS: Thyroid: Imaged portions of the thyroid gland are normal in size and attenuation. A 1.2 cm low-attenuation nodule is seen in the left lobe. Thoracic aorta: The thoracic aorta is normal in caliber and demonstrates standard 3-vessel arch anatomy. No dissection is seen. Pulmonary vasculature: The pulmonary trunk is normal in caliber. There are no filling defects identified in main, lobar, or segmental pulmonary branches to suggest pulmonary embolus. Heart: The heart is normal in size and configuration, and without pericardial effusion. There is age advanced atherosclerotic calcification of the left coronary artery. Lungs and pleural spaces: The lungs and pleural spaces are clear noting dependent atelectasis. The trachea and central airways are patent. Mediastinum: There is no mediastinal lymphadenopathy. Lucia: Clear. Axillae: There is no axillary lymphadenopathy. Upper abdomen: There is a small hiatal hernia. Partially visualized upper abdominal viscera is otherwise within normal limits. Skeletal structures: No lytic or blastic bony lesions are seen. IMPRESSION: 1. There is no evidence of pulmonary embolus in the main, lobar, or segmental pulmonary arteries. 2. The lungs are clear. 3. There is a 1.2 cm low-attenuation nodule in the left thyroid lobe. Follow-up with a nonemergent thyroid ultrasound is recommended for further assessment. 4. There is mild but age advanced atherosclerotic calcification of the left coronary artery. Electronically signed by: Napoleon Turner M.D. 05/03/2017 9:43 PM Dictated Date/Time: 05/03/2017 9:39 PM
[2017-05-03] MEDS ORDERED: HYDROmorphone INJ 0.5 MG/0.5 ML SYR IV STA (22:27)
[2017-05-03] MEDS ORDERED: METHYLPREDNISOLONE 125 MG VIAL IV STA (22:27)
[2017-05-03] MEDS ORDERED: NORCO 5/325MG HOME PACK PO ONE (22:30)
[2017-05-03] MEDS ORDERED: PRED10TA PO (23:03)
[2017-05-03 23:05] VITALS: BP 133/86; PULSE 78; O2SAT 98
== END 2017-05-03 23:07 | disposition home or self-care (01) ==
LOC: C.EDB 17:44 → C.EDC 23:07
DX: R10.9 Unspecified abdominal pain (principal); M54.10 Radiculopathy, site unspecified; E04.1 Nontoxic single thyroid nodule; R68.83 Chills (without fever); Z79.899 Other long term (current) drug therapy

== ENCOUNTER → 2017-06-21 | Outpatient (CLI) | payer BC ==
[~2017-06-21] MED LIST changes: +HYDR-5688 PO; +KETO10TA PO; +PRED10TA PO
== END | disposition home or self-care (01) ==
LOC: C.LABPVFM 15:43
PROVIDERS: ATTEND Family Medicine
DX: R39.9 Unspecified symptoms and signs involving the genitourinary system (principal)